=== PATIENT | male | born 1955 | race Caucasian/White ===

== ENCOUNTER 2019-09-15 12:36 | Inpatient (IN) ==
[2019-09-15] MEDS ORDERED: NITROGLYCERIN SL PRN (15:51)
[2019-09-15] MEDS ORDERED: MORPHINE IV PRN (15:51)
[2019-09-15] MEDS ORDERED: TYLENOL PO PRN (15:51)
[2019-09-15] MEDS ORDERED: ZOFRAN IV PRN (15:51)
[2019-09-15] MEDS ORDERED: SALINE LOCK IV FLUID XX ONE (15:51)
[2019-09-15 17:12] LABS: BASO# 0.02 X1000 (0.0-0.2); BASO% 0.2 % (0.0-0.8); EOS# 0.14 X1000 (0.0-0.7); EOS% 1.6 % (0.0-10.0); HEMATOCRIT 44.5 % (42.0-52.0); IMM GRAN# 0.02 X1000 (0.0-0.04); IMM GRAN% 0.2 % (0.0-0.5); LYMPH# 1.38 X1000 (1.2-3.4); LYMPH% 15.3 % (20.5-51.1); MCH 31.6 PG (27-31); MCHC 33.7 g/dL (33-37); MCV 93.9 FL (81-99); MONO# 0.82 X1000 (0.11-0.59); MONO% 9.1 % (1.7-9.3); MPV 10.2 FL (7.4-10.4); NEUT# 6.64 X1000 (1.4-6.5); NEUT% 73.6 % (42.2-75.2); PLT 275 X1000 (130-400); RBC 4.74 XMIL (4.7-6.1); RDW 12.6 % (11.5-14.5); WBC 9.02 X1000 (4.8-10.8)
[2019-09-15 17:18] LABS: AGAP 10; ALB/GLOB RATIO 1.6; ALBUMIN 4.1 g/dL (3.5-5.0); ALKALINE PHOSPHATASE 142 U/L (32-122); BUN 10 mg/dL (8-22); CHLORIDE 99 mmol/L (98-107); COSMO 279; CREATININE 0.8 mg/dL (0.7-1.2); ESTIMATED GFR > 60; GLUCOSE 213 mg/dL (70-104); GOT 17 U/L (10-34); GPT 15 U/L (10-44); MAGNESIUM 1.7 mg/dL (1.5-2.7); POTASSIUM 4.3 mmol/L (3.5-5.1); SODIUM 137 mmol/L (136-145); TCO2 28 mmol/L (25-35); TOTAL BILIRUBIN 0.37 mg/dL (0.20-1.00); TOTAL PROTEIN 6.6 g/dL (6.3-8.3)
[2019-09-15 17:23] LABS: HEMOGLOBIN A1C 9.6 % (4.8-6.0)
[2019-09-15 17:25] LABS: INR 1.07
--- NOTE | 2019-09-15 17:57 | CARDIOLOGY CONSULTATION ---
DATE: 09/15/2019 CONSULTATION REQUESTED BY: Dr. FELIX Jaeger. REASON FOR CONSULTATION: Progressive exertional dyspnea and chest discomfort. HISTORY: Mr. Angel is a pleasant 64-year-old male who is known to me. We have followed him at the office regularly. The patient presented to Dr. Jaeger recently with increasing dyspnea to relatively minor effort as well as chest discomfort. The patient was very concerned that he may have progression of coronary heart disease and therefore he has been admitted with intention of performing invasive cardiac evaluation. PAST MEDICAL HISTORY: Positive for severe coronary heart disease. Back in 2007 we performed a coronary arteriogram that showed multivessel disease and he was referred to [facility] where they performed a multivessel coronary bypass procedure including a mammary graft to LAD, a vein graft to marginal branch, vein graft to diagonal branch and vein graft to right coronary artery. Since then, the patient has been doing relatively well. He has a longstanding history of diabetes mellitus which he has been handling with insulin. He does have a history of hypertension, hyperlipidemia. SURGICAL HISTORY: Positive for cholecystectomy and a quadruple coronary bypass procedure. 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 He is to his for 46 years. They do have 1 child. He has no other issues. FAMILY HISTORY: Positive for father having heart disease. HOME MEDICATIONS: At the time of this admission include aspirin 325 mg daily, atorvastatin 20 mg daily, clopidogrel 75 daily, insulin Lantus SoloSTAR 35 units twice a day, metformin 1000 twice a day, metoprolol 50 mg daily, multivitamin daily. ALLERGIES: He does not have any allergies. REVIEW OF SYSTEMS: Basically positive for increasing exertional chest discomfort. PHYSICAL EXAMINATION: At this time blood pressure is 133/82, temperature 97.6 degrees, pulse 65, respirations 18. Patient is awake, alert, in no distress.HEENT: Unremarkable. Chest: Sounds clear to auscultation and percussion. Heart: Sounds regular, rhythmic. No gallop or murmur. Abdomen: Nontender, soft. No masses or hepatomegaly. Extremities: Showed actually decreased pulses. No edema. Neurologic: Nonfocal. Moves 4 extremities. IMPRESSION: 1. Patient who presented to the hospital with increasing dyspnea and chest discomfort to relatively minor effort. Functional class 3 to 4. 2. History of severe coronary heart disease, multivessel bypass surgery in 2007. 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 4. History of hypertension. 5. History of hyperlipidemia. RECOMMENDATION: At this time, I would suggest, in agreement with Dr. Jaeger , to proceed with a left heart catheterization to define his coronary anatomy. The benefits, risks, complications of procedure were explained to the patient today. He understood, requested to proceed. cc: MD Luis Lott MD [facility]
[2019-09-15] MEDS: LOVENOX SUBQ SCH (18:34)
--- NOTE | 2019-09-15 20:45 | ECHO REPORT ---
ORDER DATE: 09/15/2019 MEASUREMENTS: Aortic root 3.7, left atrium 4.5. SUMMARY: 1. Technically difficult study due to limited acoustic window quality. 2. The aortic valve is trileaflet and opens normally on 2-dimensional images. The peak gradient across the valve is less than 5 mmHg. Mitral, tricuspid and pulmonic valves are without evidence of structural abnormality, with trace mitral regurgitation and mild pulmonic insufficiency. The aortic root is normal in size. 3. Normal left ventricular chamber size with mild concentric left ventricular hypertrophy is suggested. Estimated left ventricular ejection fraction appears to be at least 55%. No obvious regional wall motion abnormality can be appreciated. Doppler suggests grade 1 left ventricular diastolic function. The left atrium is mildly enlarged. The right atrium and right ventricle are normal in size with grossly preserved right ventricular systolic function. 4. No pericardial effusion. 5. Appearance of the inferior vena cava suggests normal central venous pressure. cc: MD Luis Bejarano MD
--- NOTE | 2019-09-15 21:01 | HISTORY AND PHYSICAL ---
CHIEF COMPLAINT: Exertional chest pain for the last 1-1/2 weeks. HISTORY OF PRESENT ILLNESS: He is a 64-year-old pleasant white gentleman with a known history of existing heart disease status post bypass surgery since 2007, noncompliant, elevated blood sugar, who came in with exertional chest pain similar to the previous angina radiating to the left arm with no other concomitant symptoms, shortness of breath, PND, orthopnea and diaphoresis relieving with rest. I spoke to Dr. Lorenzana. He said to admit to the PVC unit and the left heart catheterization in the morning by Dr. Burt Wesley. 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 PAST SURGICAL HISTORY: Bypass surgery in 2007, cholecystectomy, bilateral cataract surgery. MEDICATIONS: Lipitor 20 daily, Plavix 75 daily, Lantus 35 units subcutaneous b.i.d., metoprolol 50 daily, multivitamin 1 tablet daily, aspirin 325 daily, metformin 1000 mg b.i.d. ALLERGIES: Not known. SOCIAL HISTORY: . One kid. Lives in [place]. 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 No smoking. No alcohol. FAMILY HISTORY: Father of prostate cancer at 71. Mom is 75 years old with dementia and diabetes. HEALTH MAINTENANCE: Flu vaccine October 2018, pneumococcal 2011. Last physical October 2018, colonoscopy in October [address] Shen. REVIEW OF SYSTEMS: HEENT: No headache. Vision problem in the right eye. No earache. No sore throat. Neck: No goiter. No lymphadenopathy. No bruit. Cardiopulmonary: No chest pain, shortness of breath, PND, orthopnea, exertional chest pain, no PND, no orthopnea. GI: No nausea, vomiting, abdominal pain. : No history of hesitancy, frequency, dysuria. No swelling of feet. No joint pain. Neurologic: No focal symptoms or weakness. PHYSICAL EXAMINATION: Temperature is 97.8 degrees, pulse 64, blood pressure 140/82, 5 feet 11 inches, 216 pounds. HEENT: Atraumatic, normocephalic. Pupils equal, react to light. TMs are normal. Nose and throat within normal limits. NECK: Supple. No lymphadenopathy. No goiter. CHEST: Bilateral air entry. HEART: Sounds are regular. No murmur. ABDOMEN: Belly is soft, slightly protuberant. No masses palpable. EXTREMITIES: No peripheral edema or cyanosis. NEUROLOGIC: No obvious neurological deficits. INVESTIGATIONS: CBC: White cell count 9, hematocrit 44, platelets 275,000. PT 14, INR 1.0. SMA 7 is normal, glucose 243. A1c 9.6. LFTs, cardiac enzymes and proBNP were normal. EKG normal sinus with incomplete right bundle. Nothing acute. ASSESSMENT AND PLAN: A 64-year-old white gentleman admitted to the hospital with exertional chest pain similar to the angina with underlying existing heart disease. Plan is left heart catheterization. Dr. Lorenzana consult. NPO after midnight. I will check the lipid profile. A1c 9.6. Continue aspirin, Plavix, deep vein thrombosis prophylaxis with Lovenox. Go back on beta blockers. Since a he is going to be NPO after midnight, we will hold the insulin dose and morphine for p.r.n. pain. I appreciated Dr. Lorenzana's consult and will follow up. cc: Luis Jaeger MD
[2019-09-15] MEDS: HUMULIN R SUBQ SCH (21:50)
[2019-09-16] MEDS: HUMULIN R SUBQ SCH ×4 (06:43→20:15)
[2019-09-16 06:48] LABS: CHOLESTEROL 142 mg/dL (0-200); HDL 40 mg/dL (35-55); LDL 82 mg/dL; TRIGLYCERIDES 99 mg/dL (39-160); VLDL 20 mg/dL
[2019-09-16] MEDS ORDERED: HEPARIN 1000 UNITS/NS 2,000 UNIT/1,000 ML IV.SOLN ONE (08:19)
[2019-09-16] MEDS: PLAVIX PO SCH (08:32)
[2019-09-16] MEDS: CENTRUM TABLET PO SCH (08:32)
[2019-09-16] MEDS: PRILOSEC PO SCH (08:32)
[2019-09-16] MEDS: ASPIRIN PO SCH (08:32)
[2019-09-16] MEDS: LIPITOR PO SCH (08:32)
[2019-09-16] MEDS: TOPROL XL PO SCH (08:32)
[2019-09-16] MEDS ORDERED: ASPIRIN PO SCH (09:00)
[2019-09-16] MEDS ORDERED: ANESTHESIA PB SET 88 IN 5742 ONE (09:20)
[2019-09-16] MEDS ORDERED: CLAVE TWINSITE 32 IN 11959 ONE (09:20)
[2019-09-16] MEDS ORDERED: MORPHINE ONE (09:21)
[2019-09-16] MEDS ORDERED: VERSED ONE (09:21)
[2019-09-16] MEDS ORDERED: NS 1,000 ML ONE (09:21)
--- NOTE | 2019-09-16 11:21 | EKG Report ---
Test Performed on : 09/16/2019 11:17:15 AM Test Reason : post heart cath Blood Pressure : / mmHG Vent. Rate : 063 BPM Atrial Rate : 063 BPM P-R Int : 172 ms QRS Dur : 096 ms QT Int : 402 ms P-R-T Axes : 039 -70 051 degrees QTc Int : 411 ms Normal sinus rhythm. Possible Left atrial enlargement Incomplete right bundle branch block Left anterior fascicular block Abnormal ECG When compared with ECG of 23-OCT-2010 07:09, Left anterior fascicular block is now present Confirmed by Micky Dye MD ([id number]) on 09/17/2019 3:40:17 PM
[2019-09-16] MEDS ORDERED: KLOR-CON PO PRN ×3 (11:37)
[2019-09-16] MEDS ORDERED: ZOFRAN IV PRN (11:37)
[2019-09-16] MEDS ORDERED: MAGNESIUM SULFATE 2 GM in STERILE WATER INJ. 50 ML IV PRN ×4 (11:37)
[2019-09-16] MEDS ORDERED: PERCOCET-5 PO PRN (11:37)
[2019-09-16] MEDS ORDERED: NITROGLYCERIN SL PRN (11:37)
[2019-09-16] MEDS ORDERED: TYLENOL PO PRN (11:37)
[2019-09-16] MEDS ORDERED: MILK OF MAGNESIA PO PRN (11:37)
[2019-09-16] MEDS ORDERED: RESTORIL PO PRN (11:37)
[2019-09-16] MEDS ORDERED: DULCOLAX PR PRN (11:37)
[2019-09-16] MEDS ORDERED: XANAX PO PRN (11:37)
[2019-09-16] MEDS ORDERED: CEPACOL SORE THROAT LOZENGE MT PRN (11:37)
[2019-09-16] MEDS ORDERED: MAGNESIUM SULFATE 3 GM in NS 100 ML IV PRN (11:37)
[2019-09-16] MEDS ORDERED: NS 500 ML IV ONE (12:00)
[2019-09-16] MEDS: LOVENOX SUBQ SCH (20:16)
--- NOTE | 2019-09-16 21:36 | PROGRESS NOTE ---
DATE: 09/16/2019 SUBJECTIVE: The patient is going for left heart catheterization by Dr. Wesley, pain-free. REVIEW OF SYSTEMS: No chest pain, shortness of breath. PHYSICAL EXAMINATION: Vital Signs: Temperature is 98.4 degrees, pulse 67, blood pressure 120/92. HEENT: Within normal limits. Neck: Supple. Chest: Clear. Heart: Sounds are regular. Abdomen: Belly is soft, nontender. Neurologic: No obvious deficits. INVESTIGATIONS: Reported cardiac enzymes were negative. Cholesterol 152, LDL is 82. ASSESSMENT AND PLAN: 1. Exertional chest pain, existing coronary artery disease, status post bypass surgery, and going for left heart catheterization. Based on that, further recommendations will be followed. 2. Optimize the treatment. Probably keep the A1c close to 8, LDL less than 70. 3. Appreciated Cardiology consult and will follow up. LEVEL OF DOCUMENTATION: 25 minutes. cc: Luis Jaeger MD
--- NOTE | 2019-09-16 21:48 | CARDIAC CATH REPORT ---
PROCEDURE NAME: - PROCEDURE PERFORMED: 1. Left heart catheterization. 2. Selective coronary angiography. 3. Ascending aortography. 4. Angiography of saphenous vein graft. 5. Angiography of the left internal mammary artery graft. INDICATIONS: A 64-year-old diabetic with history of previous coronary artery bypass grafting in the past with exertional fatigue, as well as some chest tightness suspicious for recurrent angina. ENTRY SITE: Right femoral artery. CATHETERS USED: A 5-Tongan JL4, JR4, ESSENCE, and angled pigtail, and AR MOD. TECHNIQUE: After intravenous sedation with Versed and morphine, local anesthesia with lidocaine was applied over right femoral artery. Arterial access was established with placement of a 5- Tongan sheath in the right femoral artery using modified Seldinger technique. Selective coronary angiography was performed. Following this, attempts were made to pursue angiography of saphenous vein grafts. The saphenous vein graft to the obtuse marginal was demonstrated to be occluded. Other saphenous vein grafts could not be localized. The patient subsequent underwent angiography of left internal mammary artery graft. Following this, left heart catheterization and left ventriculography were performed. Thereafter ascending aortography was performed to try and identify ostia of saphenous vein grafts. Angiography of saphenous vein graft ostia, all of which proved to be occluded, was accomplished with a 5-Tongan AR MOD catheter. Upon completion of procedure, arterial sheath was removed from right femoral artery and hemostasis facilitated with manual pressure. Patient tolerated the procedure without apparent complications. FINDINGS: HEMODYNAMICS: Aortic pressure 111/54. Left ventricular pressure 141 over EDP of 12. ANGIOGRAPHY: 1. Left ventriculogram. The left ventricle is of normal size. There is mild hypokinesis of the apical inferior wall on PALMA projection. Estimated left ventricular ejection fraction appears to be at least 65%. There is no significant mitral regurgitation. 2. Ascending aortography. Ascending aortography was performed and demonstrates mild dilatation of ascending aorta. There are no visible saphenous vein grafts patent. 3. Left main coronary artery. Left main coronary artery demonstrates mild diffuse atherosclerosis proximally. 4. Left anterior descending coronary artery. The left anterior descending coronary artery is occluded at its ostium. 5. Left circumflex coronary artery. The left circumflex coronary artery demonstrates a large 1st obtuse marginal arising very proximally. The 1st obtuse marginal demonstrates a moderate (60% to 70%) proximal stenosis. The proximal left circumflex coronary artery just after origin of the 1st obtuse marginal demonstrates severe (80% to 90%) atherosclerotic narrowing. A small 2nd obtuse marginal arises thereafter, followed by a branched 3rd obtuse marginal. The 3rd obtuse marginal demonstrates occlusion of the more superior ramus. Collaterals from the 1st obtuse marginal are seen filling the superior ramus of the 3rd obtuse marginal. There are also collaterals from the inferior ramus of the 3rd obtuse marginal going to the very distal right coronary artery. 6. Right coronary artery. The dominant right coronary artery demonstrates prominent calcification proximally. The distal right coronary demonstrates a moderate (50%) stenosis before the posterior descending artery. The distal right coronary artery is occluded just after the origin of the posterior descending artery. The posterior descending artery demonstrates a moderate (40% to 50%) very proximal stenosis. The midportion of the posterior descending artery demonstrates a severe (90%) stenosis. 7. Left internal mammary artery graft to the left anterior descending coronary artery. This graft is widely patent. 8. Saphenous vein graft to the right coronary artery, saphenous vein graft to the diagonal, and saphenous vein graft to obtuse marginal are all occluded. IMPRESSION: Severe multivessel coronary atherosclerosis as described with occlusion of all 3 saphenous vein grafts and patent left internal mammary artery graft to the left anterior descending coronary artery. RECOMMENDATIONS: Favor medical management of patient's coronary atherosclerosis, reserving palliative percutaneous coronary interventions for refractory angina. Aggressive coronary risk factor modification also recommended. cc: MD Luis Bejarano MD
[2019-09-17] MEDS: PRILOSEC PO SCH (06:05)
[2019-09-17] MEDS: HUMULIN R SUBQ SCH (06:14)
[2019-09-17 07:46] VITALS: BP 130/73
[2019-09-17] MEDS: TOPROL XL PO SCH (08:11)
[2019-09-17] MEDS: LIPITOR PO SCH (08:11)
[2019-09-17] MEDS: PLAVIX PO SCH (08:11)
[2019-09-17] MEDS: CENTRUM TABLET PO SCH (08:11)
[2019-09-17] MEDS: ASPIRIN PO SCH (08:11)
== END 2019-09-17 10:11 | disposition home or self-care (01) | DRG 287 ==
LOC: DIRADM 12:36 → 2N 13:51
PROVIDERS: ADMIT Internal Medicine; ATTEND Internal Medicine